=== PATIENT | male | born 1985 | race Caucasian/White ===

== ENCOUNTER 2017-08-10 17:03 | Emergency (ER) | payer MEDICAID ==
[~2017-08-10] VITALS: Ht 160 cm; Wt 46.7 kg
[2017-08-10 17:26] VITALS: BP 124/84
[2017-08-10 18:02] VITALS: BP 124/84
== END 2017-08-10 18:02 | disposition home or self-care (01) ==
LOC: MED 17:03
DX: S00.81XA Abrasion of other part of head, initial encounter (principal); W19.XXXA Unspecified fall, initial encounter; Y93.89 Activity, other specified; Y92.89 Other specified places as the place of occurrence of the external cause; Y99.8 Other external cause status
CPT/HCPCS: 99283

== ENCOUNTER 2020-10-15 10:48 | Emergency (ER) | payer MEDICAID ==
[~2020-10-15] VITALS: Ht 142.2 cm; Wt 41.7 kg
[2020-10-15 10:50] VITALS: BP 151/105
--- NOTE | 2020-10-15 10:51 | NUR ---
Patient wheel chair assisted to bed 4
[2020-10-15] MEDS ORDERED: ASCO500T95 PO (11:10)
[2020-10-15] MEDS ORDERED: CARB200T1 PO (11:10)
[2020-10-15] MEDS ORDERED: DOCU100C16 PO (11:10)
[2020-10-15] MEDS ORDERED: GEMF600T5 PO (11:10)
[2020-10-15] MEDS ORDERED: ZINC220T3 PO (11:10)
[2020-10-15] MEDS ORDERED: CHOL500014 PO (11:10)
[2020-10-15] MEDS ORDERED: MULT-1868 PO (11:10)
[2020-10-15] MEDS ORDERED: FAMO-90 PO (11:10)
[2020-10-15] MEDS ORDERED: ACET-2619 PO (11:12)
[2020-10-15] MEDS ORDERED: BISA-218 RC (11:12)
--- NOTE | 2020-10-15 11:23 | NUR ---
RECEIVED PATIENT VIA W/C BIB CAREGIVER FOR CHRONIC WOUND TO BUTTOCK. PT CURRENTLY ON PO ANTIBIOTICS AND THERE IS PURULENT DRAINAGE, DR GILL IS AT THE BEDSIDE AND EXAM OF WOUND TO LEFT BUTTOCK WOUND. DR ATTEMPTED TO OBTAIN FLUID VIA #18 NEEDLE, NONE WITHDRAWN. SPECIFIC INSTRUCTIONS IN CARING OF THIS WOUND EXPLAINED TO CAREGIVER WHO IS VERBALIZING UNDERSTANDING. HX: PROFOUND INTELLECTUAL DISABILITY, EPILEPSY, QUADRIPLEGIC CEREBRAL PALSY, INFANTILE IDIOPATHIC SCOLIOSIS
[2020-10-15 11:40] VITALS: BP 129/88
--- NOTE | 2020-10-15 11:48 | NUR ---
Patient discharged with v/s stable. Written and verbal after care instructions given and explained. Patient verbalized understanding. Wheel Chair Assisted with by caregiver. All questions addressed prior to discharge. Advised to follow up with PMD.
== END 2020-10-15 11:48 | disposition home or self-care (01) ==
LOC: MED 10:48
DX: S31.829D Unspecified open wound of left buttock, subsequent encounter (principal); Z79.899 Other long term (current) drug therapy; X58.XXXD Exposure to other specified factors, subsequent encounter
CPT/HCPCS: 99284